=== PATIENT | male | born 1985 | race Caucasian/White ===

== ENCOUNTER 2016-10-01 17:07 | Day surgery (SDC) | payer BC, MEDICAID ==
--- NOTE | 2016-10-01 19:22 | ED ---
Marti Reynoso Alok, scribed for Odalys Noriega MD on 10/01/16 at 1831 . Abdominal Pain/Male - HPI Summary HPI Summary: 31M presents to the ED for abd pain since 2200 last night. Pt states what began as pain under the right rib cage moved to the RLQ at 0630. 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 Pt denies N/V/ D. Pt drinks ETOH occasionally. CT abd report from [facility]: IMPRESSION: Thickened 9 mm appendiz with subtle periappendiceal inflammatory changes consistent of acute appendicitis. No abscess or pneumoperitoneum is seen. Mild fatty infiltration of the liver without hepatic mass or biliary dilation. Otherwise unremarkable CT abdomen and pelvis with intravenous contrast. - History of Current Complaint Chief Complaint: EDAbdPain Stated Complaint: ABD PAIN/SENT FROM [facility] Time Seen by Provider: 10/01/16 17:56 Hx Obtained From: Patient Onset/Duration: Sudden Onset, Lasting Hours, Still Present Timing: Constant Severity Initially: Moderate Severity Currently: Moderate Pain Intensity: 5 Pain Scale Used: 0-10 Numeric Location: Discrete At: RLQ Radiates: No Aggravating Factor(s): Nothing Alleviating Factor(s): Nothing Associated Signs And Symptoms: Negative: Nausea, Vomiting, Diarrhea - Allergies/Home Medications Allergies/Adverse Reactions: Allergies Allergy/AdvReac Type Severity Reaction Status Date / Time No Known Allergies Allergy Verified 10/01/16 18:26 Home Medications: Home Medications NK [No Home Medications Reported] 10/01/16 [History Confirmed 10/01/16] PMH/Surg Hx/FS Hx/Imm Hx Infectious Disease History: No Infectious Disease History: Denies: Traveled Outside the [place] in Last 30 Days - Family History Known Family History: Negative: Hypertension, Diabetes - Social History Occupation: Employed Full-time Lives: With Family Alcohol Use: Occasionally Substance Use Type: Reports: None Smoking Status (MU): Former Smoker Review of Systems Negative: Fever Positive: Abdominal Pain. Negative: Vomiting, Diarrhea, Nausea All Other Systems Reviewed And Are Negative: Yes Physical Exam Triage Information Reviewed: Yes Vital Signs On Initial Exam: Initial Vitals Temp Pulse Resp BP Pulse Ox 99.6 F 101 17 151/86 97 10/01/16 17:16 10/01/16 17:16 07/03/17 17:16 10/01/16 17:16 10/01/16 17:16 Vital Signs Reviewed: Yes Appearance: Positive: Well-Appearing, No Pain Distress Skin: Positive: Warm, Skin Color Reflects Adequate Perfusion, Dry Eyes: Positive: EOMI, SOLITARIO ENT: Positive: Pharynx normal, TMs normal Neck: Positive: Supple, Nontender Respiratory/Lung Sounds: Positive: Clear to Auscultation, Breath Sounds Present. Negative: Rales, Rhonchi, Wheezes Cardiovascular: Positive: RRR, Other - no gallop. Negative: Murmur, Rub Abdomen Description: Positive: Soft, Other: - no rebound. Right lower quadrant tenderness. Negative: Distended, Guarding Bowel Sounds: Positive: Present Musculoskeletal: Positive: Strength/ROM Intact. Negative: Edema Left, Edema Right Neurological: Positive: Sensory/Motor Intact, Alert, Oriented to Person Place, Time, CN Intact II-III Psychiatric: Positive: Affect/Mood Appropriate - Willis Coma Scale Coma Scale Total: 15 Diagnostics - Vital Signs Vital Signs Temp Pulse Resp BP Pulse Ox 10/01/16 17:30 84 19 137/78 96 10/01/16 17:18 125 21 151/86 91 10/01/16 17:16 99.6 F 101 17 151/86 97 - Laboratory Lab Statement: Any lab studies that have been ordered have been reviewed, and results considered in the medical decision making process. Abdominal Pain Fem Course/Dx - Course Course Of Treatment: case discussed with Dr. Miner who will see pt - Diagnoses Provider Diagnoses: Appendicitis - Provider Notifications Discussed Care Of Patient With: Zoraida Miner - Will admit pt [place] [facility] [place] Discussed With Above Provider: 18:55 Discharge - Discharge Plan Condition: Stable Disposition: ADMITTED TO [facility] Referrals: No Primary Care Phys,NOPCP [Primary Care Provider] - The documentation as recorded by the Marti terry Alok accurately reflects the service I personally performed and the decisions made by me, Odalys Noriega MD.
--- NOTE | 2016-10-01 19:32 | HP ---
H&P (Free Text) History and Physical: Surgery H & P Asked by Dr. Norigea to evaluate a pt. with abdominal pain and a CT suggestive of appendicitis. Mr. Boyer is a 31 y.o. male who reports that he began to feel upper abdominal pain last night. It was dull and vague. Then at 6 AM he woke up and the pain had migrated to the RLQ and was worse. He tried to sleep some more, but woke up again and the pain was bad again. He also felt feverish and sick, but denies diarrhea or constipation. He feels hungry, but hasn't eaten since last night. PMHx: denies Meds: none NKDA SH: neg. tob., occ. EtOH, neg. IVDA FH: neg. PE: General: WDWN male in NAD Vital Signs 10/01/16 10/01/16 10/01/16 17:16 17:18 17:30 Temperature 99.6 F Pulse Rate 101 125 84 Respiratory 17 21 19 Rate Blood Pressure 151/86 151/86 137/78 (mmHg) O2 Sat by Pulse 97 91 96 Oximetry 10/01/16 10/01/16 10/01/16 18:00 18:30 19:00 Temperature Pulse Rate 92 87 88 Respiratory 21 20 15 Rate Blood Pressure 141/84 144/84 (mmHg) O2 Sat by Pulse 95 96 97 Oximetry HEENT: Neg. cervical adenopathy, moist oral mucosa, neg. scleral icterus lungs: clear to ausc. heart: reg. abd: good BS, soft, tender in McBurney's point, without guarding or rebound ext: neg. cyanosis, edema CT scan: thickened appendix with inflammation at the tip. A/P: Probable appendicitis. Will proceed to OR. I have explained to him the nature of surgery, its risks, benefits, and alternatives. He understands and agrees to proceed. LYLYFonani
[2016-10-01] MEDS ORDERED: Bupivacaine 0.25% EPI 200,000* 30 ML SDV ONE (19:34)
[2016-10-01] MEDS ORDERED: fentaNYL* 50 MCG/ML 2 ML VIAL (100 MCG VIAL) ONE ×2 (19:58→20:37)
[2016-10-01] MEDS ORDERED: Midazolam* 1 MG/ML 2 ML VIAL (2 MG) ONE (19:59)
[2016-10-01] MEDS ORDERED: ZOSYN 3.375 GM x ONE DOSE over 30 miuntes IVPB ×2 (20:00)
[2016-10-01] MEDS ORDERED: Rocuronium* 10 MG/ML VIAL ONE (20:15)
[2016-10-01] MEDS ORDERED: Famotidine IV* 10 MG/ML 2 ML (20 mg) ONE (20:23)
[2016-10-01] MEDS ORDERED: Lidocaine 2% PF * 5 ML VIAL ONE (20:23)
[2016-10-01] MEDS ORDERED: Propofol* 10 MG/ML 20 ML BTL IV PUSH ONE (20:23)
[2016-10-01] MEDS ORDERED: Dexamethasone IV* 4 MG/ML 1 ML (4 MG) ONE (20:23)
[2016-10-01] MEDS ORDERED: Succinylcholine* 20 MG/ML 10 ML VIAL ONE (20:23)
[2016-10-01] MEDS ORDERED: fentaNYL* 50 MCG/ML 2 ML VIAL (100 MCG VIAL) IV PRN (20:35)
[2016-10-01] MEDS ORDERED: HYDROcodone/ACETAMIN 5-325 MG* 1 TAB PO PRN (20:35)
[2016-10-01] MEDS ORDERED: Ondansetron INJ* 2 MG/ML VIAL IV PRN (20:35)
[2016-10-01] MEDS ORDERED: HYDROmorphone* 1 MG/ML 1 ML SYR IV PRN (20:35)
[2016-10-01] MEDS ORDERED: DiMENhydriNATE IV* 50 MG/ML VIAL IV PUSH PRN (20:35)
[2016-10-01] MEDS ORDERED: Acetaminophen TAB* 325 MG PO PRN (20:35)
[2016-10-01] MEDS ORDERED: Ketorolac INJ* 30 MG/ML 1 ML VIAL ONE (20:37)
[2016-10-01] MEDS ORDERED: oxyCODONE/Acetamin 5/325 MG* TAB PO PRN ×2 (21:05)
--- NOTE | 2016-10-01 21:20 | SURGPN ---
Brief Operative Note - Surgery Procedures: 10/01/16 Op NOte Pre-op dx: appendicitis Post-op dx: same Procedure: laparoscopic appendectomy Surgeon: Kristofer Asst: none Anesth: general EBL: 5 cc Complications: none Pt. tolerated procedure well and was transferred to in a stable condition. CLFoster
[2016-10-01 22:16] VITALS: BP 135/85
--- NOTE | 2016-10-23 03:00 | OP ---
DATE OF OPERATION: 10/01/16 - SDS DATE OF : [birth year] SURGEON: Zoraida Miner MD ANESTHESIOLOGIST: Cornell Oswald MD ANESTHESIA: General PRE-OP DIAGNOSIS: Appendicitis. POST-OP DIAGNOSIS: Appendicitis. OPERATIVE PROCEDURE: Laparoscopic appendectomy. DESCRIPTION OF PROCEDURE: This patient was diagnosed with appendicitis and brought to the operative room. He was placed on the OR table in a supine position and given general anesthesia. The abdomen was then prepped and draped in the usual sterile fashion. After infiltrating with local anesthetic, an incision was made in the infraumbilical area and subcutaneous tissue was divided bluntly. Fascia was grasped and incised, and a 0 Biosyn stitch was placed on the either side of the fascial incision. A trocar was inserted into the abdomen and the abdomen was insufflated and then under direct visualization , a suprapubic and left lower quadrant port were placed after infiltrating with local anesthetic. The appendix was visualized and dissected free from surrounding tissue using sharp and blunt dissection, and once it was freed up, its base was divided with an Endo DARRIN stapler and the mesoappendix was divided with another firing of the Endo DARRIN stapler. The appendix was withdrawn from the abdomen after being placed an EndoCatch bag through the infraumbilical port site. Brief inspection of the rest of the abdomen revealed no obvious abnormalities. Ports were withdrawn under direct visualization. The previously placed 0 Biosyn was used to close the fascia of the infraumbilical port site and 4-0 Biosyn was used to close the skin of all incisions. Steri- Strips were applied. All sponge and instrument counts were correct. The patient tolerated the procedure well and was transferred to Recovery in a stable condition. [id number]/[id number] #: [id number] [facility]
== END 2016-10-01 22:20 | disposition home or self-care (01) ==
LOC: ED 17:07 → OR 19:44
PROVIDERS: ATTEND Surgery
DX: K35.80 Unspecified acute appendicitis (principal); R10.31 Right lower quadrant pain; Z87.891 Personal history of nicotine dependence
CPT/HCPCS: 88304; 99282; C1776; J0330; J1100; J1885; J2250; J2543; J2704; J3010